=== PATIENT | female | born 1975 | race Caucasian/White ===

== ENCOUNTER 2022-03-01 14:58 | Emergency (ER) | payer OTHER ==
[2022-03-01] MEDS ORDERED: Sodium Chloride 0.9% 10 ML Syringe FLUSH PRN (17:00)
[2022-03-01] MEDS ORDERED: Sodium Chloride 0.9% 1,000 ML IV STA (17:29)
[2022-03-01 18:10] LABS: ESTIMATED GFR 80 mL/min (>60)
[2022-03-01] MEDS ORDERED: Iopamidol 755 Mg/ML 100 ML Bottle IVPUSH ONE (18:37)
[2022-03-01] MEDS ORDERED: Sodium Chloride 0.9% 100 ML IV SCH (18:45)
== END 2022-03-01 20:09 | disposition home or self-care (01) ==
LOC: JD.ED 14:58
DX: S82.831A Other fracture of upper and lower end of right fibula, initial encounter for closed fracture (principal); R42 Dizziness and giddiness; R55 Syncope and collapse; W22.09XA Striking against other stationary object, initial encounter
CPT/HCPCS: 36415; 70450; 71275; 73610; 80053; 83735; 84484; 85025; 85379; 86140; 93005; 93225; 93226; 96360; 99284; J3490; J7030; 93010